=== PATIENT | female | born 1975 | race Caucasian/White ===

== ENCOUNTER → 2023-12-31 16:18 | Outpatient (REF) | payer OTHER, SELFPAY | LOC: WDC 16:18 | PROVIDERS: ATTENDING PHYSICIAN Nurse Practitioner | DX: Z12.31 Encounter for screening mammogram for malignant neoplasm of breast (principal) | CPT/HCPCS: 77063; 77067 ==

== ENCOUNTER → 2024-12-31 16:39 | Outpatient (REF) | payer OTHER, SELFPAY | LOC: WDC 16:39 | PROVIDERS: ATTENDING PHYSICIAN Nurse Practitioner | DX: Z12.31 Encounter for screening mammogram for malignant neoplasm of breast (principal) | CPT/HCPCS: 77063; 77067 ==

== ENCOUNTER → 2025-01-06 09:40 | Outpatient (REF) | payer OTHER, SELFPAY | LOC: WDC 09:40 | PROVIDERS: ATTENDING PHYSICIAN Nurse Practitioner | DX: R92.8 Other abnormal and inconclusive findings on diagnostic imaging of breast (principal) | CPT/HCPCS: 76642 ==

== ENCOUNTER 2025-01-24 13:35 | Emergency (ER) | payer OTHER, SELFPAY ==
[2025-01-24 13:37] VITALS: BP 146/83
[2025-01-24 14:02] LABS: % Basophils 0.9 % (0-2); % Eosinophils 1.3 % (0-6); % Immature Granulocytes 0.1 % (0-0.5); % Lymphocytes 32.2 % (20.5-51.1); % Monocytes 7.9 % (1.7-9.3); % Neutrophils 57.6 % (42.2-75.2); Absolute Basophils 0.1 10^3/uL (0-0.2); Absolute Eosinophils 0.1 10^3/uL (0-0.7); Absolute Lymphocytes 2.6 10^3/uL (1.2-3.4); Absolute Monocytes 0.6 10^3/uL (0.1-0.6); Absolute Neutrophils 4.6 10^3/uL (1.4-6.5); Hematocrit 41.3 % (37.0-47.0); Hemoglobin 14.4 g/dL (12.0-16.0); Mean Corp Hgb Conc. 34.9 g/dL (33.0-37.0); Mean Corpuscular Hgb 31.6 pg (27.0-31.0); Mean Corpuscular Volume 90.6 fL (81.0-99.0); Mean Platelet Volume 8.8 fL (7.4-10.4); Nucleated Red Blood Cells % 0 %; Platelet Count 311 10^3/uL (130-400); Red Blood Cell Count 4.56 10^6/uL (4.20-5.40); Red Cell Dist. Width 12.5 % (11.5-14.5)
[2025-01-24 14:24] LABS: ALT (SGPT) 21 U/L (0-35); AST (SGOT) 22 U/L (14-36); Albumin 4.8 g/dl (3.5-5.0); Alkaline Phosphatase 40 U/L (38-126); Blood Urea Nitrogen 7 mg/dl (7-17); Calcium 9.6 mg/dl (8.4-10.2); Carbon Dioxide 22 mmol/L (22-30); Chloride 109 mmol/L (98-107); Glucose 110 mg/dl (70-99); Sodium 141 mmol/L (135-145); Total Bilirubin 0.6 mg/dl (0.2-1.3); Total Protein 7.6 g/dl (6.3-8.2); eGFR > 60.00
[2025-01-24 15:11] VITALS: BP 146/89
[2025-01-24 15:29] LABS: Urine Albumin 2+ (Neg - Trace); Urine Bilirubin Negative (Negative); Urine Character Slightly Cloudy (Clear); Urine Color Yellow; Urine Glucose Negative (Negative); Urine Ketone Negative (Negative); Urine Leukocyte Negative (Negative); Urine Nitrite Negative (Negative); Urine Occult Blood 4+ (Negative); Urine Urobilinogen Negative (Neg - 1+)
[2025-01-24 15:34] LABS: Urine Squamous Cell >30 /LPF (Few)
[2025-01-24 15:35] LABS: Urine Bacteria Many (Negative); Urine Red Blood Cell 50-60 /HPF (0-2)
[2025-01-24] MEDS: TORADOL 15 MG IV (15:54)
[2025-01-24] MEDS: ZOFRAN 4 MG IV (15:54)
--- NOTE | 2025-01-24 15:56 | ED.GENMED ---
Addendum entered and electronically signed by Jaspreet Jarvis PA-C 01/28/25 09:14:
Patient urine culture grew Enterococcus species. Susceptible to Levaquin. Contacted patient who states that she has yet to pass the stone but remains afebrile and without any other signs of infection. She did see urologist yesterday. Plan to
continue close monitoring but if does not pass will schedule intervention next week. Prescription for Levaquin sent to pharmacy. Patient advised on side effects of medications as well as return precautions to the ER.
Original Note:
History of Present Illness
General
Chief Complaint: Abdominal Symptoms
Source: patient and spouse
Exam Limitations: none
Time Seen by Provider: 01/24/25 15:46
Nursing documentation reviewed up to this point in time: agreed with
History of Present Illness
History of Present Illness:
49-year-old female with history as noted presents to the ER for evaluation of flank pain. Patient reports onset of symptoms around 5 AM and symptoms have been waxing and waning all day although intensity is generally worsened. Currently she says
her symptoms are quite severe. She reports pain in the left flank radiates towards the left lateral abdomen. No clear triggering or relieving factors noted. She reports associated nausea and vomiting. No diarrhea or constipation. Denies dysuria
or hematuria or change in urinary frequency. Denies fevers or chills. Denies similar symptoms in the past.
Past History
Past History
ED Past Medical History: Other
ED Past Surgical History: Other (tummy tuck, uterine ablation)
Social History
Living: with family
Review of Systems
Review of Systems
All Other Systems: ROS reviewed and negative except as documented in HPI and ROS
Constitutional: Denies fever
Respiratory: Denies trouble breathing
Cardiac: Denies chest pain
ABD/GI: Reports abdominal pain, nausea and vomiting; Denies diarrhea
: Reports flank pain; Denies dysuria or bleeding
Neurological: Denies dizzy or headache
Phy Exam
Physical Exam
Physical Exam:
General: Awake, alert, appears uncomfortable and is actively vomiting into emesis bag
Head: Normocephalic, atraumatic
Eyes: Conjunctiva normal, sclera anicteric
Throat: Airway intact, handling secretions
Neck: Trachea midline, supple without meningismus
Lungs: Breathing comfortably no distress
Heart: Regular rate and rhythm, no murmurs, gallops, or rubs
Abd: Soft, non distended, nontender to deep palpation
Back: No CVA tenderness, no tenderness in the thoracic or lumbar spine
Neuro: No gross deficits
Skin: no rash in area of concern
Extremities: Warm and well-perfused
Scores
Heart Failure Risk
Heart Failure Risk Score: Not Applicable
Heart Score for Chest Pain Patients
STEMI patient?: Not applicable
Withdrawal Assessment of Alcohol
Withdrawal Assessment Completed?: Not applicable
Course
Orders/Labs/Results
Orders:
Orders
01/24/25 13:47
Complete Blood Count/With Diff Urgent
Comprehensive Metabolic Panel Urgent
01/24/25 15:13
Urinalysis Reflex To Culture Urgent
Date Specimen was Collected: 01/24/25
Time Specimen was Collected: 13:39
Urine Microscopic Reflex Cult Urgent
Urine Culture Urgent
JAVIER Source: U
Specimen Description:
Date Specimen was Collected: 01/24/25
Time Specimen was Collected: 13:39
01/24/25 15:47
CT Abd/pel Without Iv Or Oral Urgent
Comment:
Reason For Exam: left flank pain
01/24/25 15:48
Ketorolac [Toradol] 15 mg IV NOW STA
Ondansetron Injectable [Zofran] 4 mg IV NOW STA
01/24/25 17:44
Oxycodone [Roxicodone] 5 mg PO NOW STA
01/24/25 17:53
Tamsulosin [Flomax] 0.4 mg PO NOW STA
Abnormal Lab Results
01/24/25 01/24/25
13:47 15:13
MCH 31.6 H pg
(27.0-31.0)
Chloride 109 H mmol/L
(98-107)
Glucose 110 H mg/dl
(70-99)
Ur Occult Blood Reflex 4+ A
(Negative)
Urine RBC 50-60 A /HPF
(0-2)
Urine WBC (Reflex) 11-15 A /HPF
(0-5)
Urine Bacteria (Reflex) Many A
(Negative)
Urine Albumin (Reflex) 2+ A
(Neg - Trace)
01/24/25 13:47
01/24/25 13:47
Vital Signs
Initial and Last Documented VS:
Initial Vital Signs
Temp Pulse Resp BP Pulse Ox
36.8 C 64 16 146/83 98
01/24/25 13:37 01/24/25 13:37 01/24/25 13:37 01/24/25 13:37 01/24/25 13:37
Last Documented Vital Signs
Temp Pulse Resp BP Pulse Ox
36.8 C 77 14 102/69 96
01/24/25 13:37 01/24/25 17:15 01/24/25 17:15 01/24/25 17:00 01/24/25 17:15
MDM/Problems Addressed
Differential Diagnosis Includes:
Nephrolithiasis, diverticulitis, musculoskeletal, UTI
MDM/Problems Addressed:
49-year-old female presents for evaluation of left flank pain waxing waning intensity associate with nausea and vomiting that started this morning generally worse today. Vitals and exam as above. Suspect likely nephrolithiasis based on clinical
picture. She had lab work sent in triage including a CBC and a CMP which showed no clinically significant abnormalities. Her urinalysis is positive for blood�there was some bacteriuria but many squamous cells suggest this is likely a contaminated
sample. Will send for a CT abdomen pelvis. Treat pain and nausea. Reassess after the above.
Patient much more comfortable on clinical reassessment. Vital signs normal. CT report is pending but appears to show a proximal left ureteral stone. Continue to monitor and reassess after the above.
CT shows 5 mm stone proximal left ureter. Also incidental note of right ovarian cyst will need outpatient follow-up. Provided copy of CT report for patient. I had a long discussion with patient her symptoms are well-controlled and I think she is
a reasonable candidate for trial passage. Prescribed Flomax, pain control, strainer provided in hand. We discussed follow-up plan and return precautions. She feels very comfortable with this. All questions answered.
*Radiology
Radiology exam reviewed: radiology read reviewed
*Pulse Oximetry
Patient hypoxic: no
*Critical Care Note
Total Time (30-74mins, 75-104mins- exclusive of procedures): Not Applicable
Data Reviewed
Source: patient and spouse
ED Attending Note
-
Portions of this chart may have been created with voice recognition software.� Occasional wrong word or��sound alike� substitutions may have occurred due to the inherent limitations of voice recognition software.
Discharge Plan
Departure
Patient Disposition: Home (Routine Discharge)
Date of Disposition: 01/24/25
Time of Disposition: 18:14
Patient with high blood pressure during this ER visit?: No
Discharge Problem:
Left nephrolithiasis
Instructions: Kidney Stones (DC), How to Strain Your Urine, Kidney stone diet
Prescriptions:
New
tamsulosin [Flomax] 0.4 mg capsule
0.4 mg PO DAILY Qty: 14 0RF
oxycodone 5 mg tablet
5 mg PO Q6H PRN (Reason: Pain) Qty: 14 0RF
No Action
albuterol sulfate 1 PUFF HFA aerosol inhaler
2 puff inhalation R Q4HPRN PRN (Reason: allergies)
fluticasone propionate 1 SPRAY spray,suspension
1 spray intranasal DAILY PRN (Reason: allergy)
loratadine 10 MG tablet
10 mg PO DAILY PRN (Reason: allergy)
thyroid (pork) [Sumner Thyroid] 30 MG tablet
90 mg PO DAILY
Referrals:
Henrik Padilla MD [Active] - Call in 1-3 days for appt (Urology)
Carline Morales MD [Primary Care Provider] -
Activity Restrictions/Additional Instructions:
Thank you for visiting the Emergency Department at [facility].
1. Please schedule a follow up appointment as directed. Call first thing tomorrow morning to make an appointment.
2. If indicated, please take your medications as instructed and indicated on discharge paperwork.
3. If any of your symptoms do not improve, or persist, or become more severe within 6-12 hours, please return to the emergency department for further care.
4. Please return to the emergency department if you develop a headache, neck pain/stiffness, fever greater than 100.4F, chest pain, shortness of breath, persistent nausea, vomiting, slurred speech, difficulty walking, numbness/tingling, weakness,
signs of infection or any other symptoms that are worrisome to you.
Please call [phone] if you have any questions.
Interventions
Interventions:
*Risk Screen - Suicide Last Done: 01/24/25 13:37
*Neglect/Abuse Screening Last Done: 01/24/25 16:35
*ED- Fall Risk Assessment Last Done: 01/24/25 16:35
*ED COVID-19 Vaccine History Last Done: 01/24/25 16:35
YE-Gerzer-Xggufkydjt Assessment Last Done: 01/24/25 16:35
ED-Female Genitourinary Assessment Last Done: 01/24/25 16:35
Discharge Date and Time
Print Language: NIGERIEN
[2025-01-24 16:00] VITALS: BP 128/77
[2025-01-24 16:34] VITALS: BMI 21.1
[2025-01-24 17:00] VITALS: BP 102/69
[2025-01-24] MEDS: ROXICODONE 5 MG PO (17:55)
[2025-01-24] MEDS: FLOMAX 0.4 MG PO (17:59)
== END 2025-01-24 18:52 | disposition home or self-care (01) ==
LOC: EMR 13:35
PROVIDERS: EMERGENCY PHYSICIAN Emergency Medicine; PRIMARYCARE PHYSICIAN Internal Medicine
DX: N13.2 Hydronephrosis with renal and ureteral calculous obstruction (principal)
CPT/HCPCS: 99284; 96374; 96375; 74176; 80053; 81003; 81015; 85025; 87077; 87086; 87186

== ENCOUNTER → 2025-06-29 16:53 | Outpatient (REF) | payer OTHER, SELFPAY | LOC: WDC 16:53 | PROVIDERS: ATTENDING PHYSICIAN Internal Medicine; FAMILY PHYSICIAN Nurse Practitioner | DX: R92.8 Other abnormal and inconclusive findings on diagnostic imaging of breast (principal) | CPT/HCPCS: 77061; 77065 ==